=== PATIENT | female | born 1975 | race Caucasian/White ===

== ENCOUNTER 2018-11-25 13:32 | Outpatient (CLI) | payer OTHER ==
--- NOTE | 2018-11-25 16:59 | MRI Report ---
Reason: LOW BACK PAIN Procedure Date: 11/25/2018 Accession Number: [id number] / [id number] Procedure: MRI - Lumbar Spine W/O CPT Code: FULL RESULT: EXAM: MRI LUMBAR SPINE WITHOUT CONTRAST EXAM DATE: 11/25/2018 03:06 PM. CLINICAL HISTORY: LOW BACK PAIN. COMPARISON: None. TECHNIQUE: Multiplanar, multisequence T1-weighted and fluid-sensitive sequences of the lumbar spine from T12 to S1 without contrast. Other: None. FINDINGS: Spinal Canal: The conus terminates at L1. The conus medullaris and cauda equina are unremarkable. Alignment: There appears to be 10 degrees of dextroconvex scoliotic curvature centered about L2-L3. No definite spondylolisthesis. Bone Marrow: Five [id number] lumbar vertebral bodies are assumed. No acute fracture. There is T1/T2 hyperintense lesion seen within the T10, T12, L2, L3, and L4 vertebral bodies that may represent hemangiomas. No other marrow replacing lesion seen. Disk Levels/Facets: T12-L1: Minimal bilateral threaded facet disease. No spinal canal stenosis. No definite neural foraminal narrowing. L1-L2: Slight posterior disk bulge. Minimal bilateral arthritic facet disease. No spinal canal stenosis. No neural foraminal narrowing. L2-L3: Slight posterior disk bulge and minimal to mild bilateral arthritic facet disease. No spinal canal stenosis. No definite neural foraminal narrowing. L3-L4: Slight posterior disk bulge with superimposed tiny bilateral neural foraminal disk protrusions. Mild bilateral arthritic facet disease. No spinal canal stenosis. No significant neural foraminal narrowing. L4-L5: Slight posterior disk bulge with superimposed tiny bilateral neural foraminal disk protrusions. Mild bilateral arthritic facet disease with fluid seen within the facets bilaterally. No spinal canal stenosis. Mild bilateral neural foraminal narrowing. L5-S1: Slight posterior disk bulge with superimposed tiny to small left neural foraminal disk protrusion. Bilateral arthritic facet disease. No spinal canal stenosis. Mild left neural foraminal narrowing. Musculature: There is T2 hyperintense lesion arising from the right L4-L5 facet projecting into the right multifidus muscles measuring 3 x 5 x 3 mm (cc by TR by AP) likely representing synovial cyst. Other: The partially visualized retroperitoneum is unremarkable. IMPRESSION: 1. There appears to be 10 degrees of dextroconvex scoliotic curvature centered about L2-L3. 2. Minimal to mild multilevel degenerative changes with no high-grade spinal canal stenosis seen. 3. There appears to be mild neural foraminal narrowing involving bilateral L4-L5 neural foramina and left L5-S1 neural foramina. Comment: The following findings are so common in adults without low back pain that while we report their presence, they must be interpreted with caution and in the context of the clinical situation. (Reference Dukek et al, Spine 2001) Prevalence of findings in patients without low back pain: Disk degeneration (any evidence): 92% Disk desiccation/T2 signal loss: 83% Disk height loss: 56% Disk bulge: 64% Disk protrusion: 32% Annular tear/high intensity zone: 38% RADIA
== END 2018-11-25 13:33 | disposition home or self-care (01) ==
LOC: DI 13:32
PROVIDERS: ATTEND Family Medicine
DX: M51.36 Other intervertebral disc degeneration, lumbar region (principal); M48.061 Spinal stenosis, lumbar region without neurogenic claudication; M51.26 Other intervertebral disc displacement, lumbar region; M41.86 Other forms of scoliosis, lumbar region
CPT/HCPCS: 72148

== ENCOUNTER 2019-09-25 08:14 | Emergency (ER) | payer OTHER ==
[2019-09-25] MEDS ORDERED: CHERRY SYRUP 10 ML UDC PO ONE (08:35)
[2019-09-25] MEDS ORDERED: DEXAMETHASONE 10 MG/ML VIAL PO STA (08:35)
[2019-09-25] MEDS ORDERED: KETOROLAC 60 MG/2 ML VIAL IM STA (08:35)
--- NOTE | 2019-09-25 08:38 | ED Physician Documentation ---
PD HPI BACK PAIN - Stated complaint Stated Complaint: BACK PX - Chief complaint Chief Complaint: Back Pain - History obtained from History obtained from: Patient, Family - History of Present Illness Timing - onset: Last night Timing - duration: Hours Timing - details: Gradual onset, Still present Location: Lower Quality: Pain, Spasm, Sharp, Similar to prior episodes Associated symptoms: No: Fever, Weakness, Numbness, Incontinent of urine, Unable to urinate, Hematuria, Incontinent of stool Improves with: Position. No: Rest Worsened by: Movement Contributing factors: Lifting, Twisting, Other (painting in the house) Similar symptoms before: Diagnosis (lumbar disc disease) Recently seen: Not recently seen - Additional information Additional information: 43-year-old female with lumbar disc disease and chronic back pain who has been in physical therapy for the past 2 years has developed acute lower back pain and spasm. She denies any radiation to her feet or toes she does have some radiation to the front of her thighs. She denies any numbness in the perineum she denies any difficulty with the bowel or bladder. She has had similar symptoms previously she has never had them this bad. She has pain to any kind of movement. She has been painting in her house and she attributes this increased back pain to the excessive use. She also states that she went swimming yesterday and did flip turns which she has not been doing previously. 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 : None HEENT: None Musculoskeletal: Chronic back pain Derm: None Other Past Medical History: bulging disc in L-spine - Past Surgical History Past Surgical History: No - Present Medications Home Medications: Ambulatory Orders Medication Instructions Recorded Confirmed Cyclobenzaprine [Flexeril] 10 mg PO TID PRN #20 tablet 09/25/19 Hydrocodone/Acetaminophen 1 - 2 each PO Q6H PRN #14 tablet 09/25/19 [Hydrocodon-Acetaminophen 5-325] - Allergies Allergies/Adverse Reactions: Allergies Allergy/AdvReac Type Severity Reaction Status Date / Time No Known Drug Allergies Allergy Verified 09/25/19 08:27 - Social History Does the pt smoke?: No Smoking Status: Never smoker Does the pt drink ETOH?: No Does the pt have substance abuse?: No - Immunizations Immunizations are current?: Yes - POLST Patient has POLST: No PD ED PE NORMAL - Vitals Vital signs reviewed: Yes (normal ) - General General: Alert and oriented X 3, No acute distress, Well developed/nourished - HEENT HEENT: Atraumatic, PERRL, EOMI - Neck Neck: Supple, no meningeal sign - Respiratory Respiratory: No respiratory distress - Back Back: No CVA TTP, No spinal TTP, Other (There is mild tenderness to the paraspinous muscles of the lower lumbar spine extending into the sciatic notch bilaterally. 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 We will provide her with some pain medication muscle relaxant and ice and stretch. Departure - Departure Disposition: 01 Home, Self Care Clinical Impression: Lumbar strain Qualifiers: Encounter type: initial encounter Qualified Code(s): S39.012A - Strain of musc le, fascia and tendon of lower back, initial encounter Condition: Stable Instructions: ED Sciatica Follow-Up: SHONNA CHANDLER MD [Primary Care Provider] - Prescriptions: Cyclobenzaprine [Flexeril] 10 mg PO TID PRN #20 tablet PRN Reason: Spasms Hydrocodone/Acetaminophen [Hydrocodon-Acetaminophen 5-325] 1 - 2 each PO Q6H PRN #14 tablet PRN Reason: pain
[2019-09-25 08:46] VITALS: BP 114/79
== END 2019-09-25 09:13 | disposition home or self-care (01) ==
LOC: ED 08:14
DX: S39.012A Strain of muscle, fascia and tendon of lower back, initial encounter (principal); X50.1XXA Overexertion from prolonged static or awkward postures, initial encounter; Y93.E9 Activity, other interior property and clothing maintenance; Y92.009 Unspecified place in unspecified non-institutional (private) residence as the place of occurrence of the external cause
CPT/HCPCS: 96372; 99283; 99284; A9270

== ENCOUNTER 2021-09-17 07:25 | Outpatient (CLI) | payer OTHER ==
--- NOTE | 2021-09-17 10:25 | MRI Report ---
PROCEDURE: Shoulder LT W/O INDICATIONS: LEFT SHOULDER PAIN TECHNIQUE: Noncontrast oblique coronal T2 fast spin echo with fat saturation, oblique sagittal T1 spin echo and T2 fast spin echo with fat saturation, axial T1 spin echo and T2 fast spin echo with fat saturation t hrough the shoulder. COMPARISON: None. FINDINGS: Image quality: Excellent. Rotator cuff: Tendinosis and low-grade articular and bursal surface partial-thickness tear involving distal supraspinatus at its insertion on humeral head is seen extending to musculotendinous junction. Distal infraspinatus and subscapularis tendinosis is also noted. No full-thickness rotator cuff tend on rupture.. No rotator cuff muscle atrophy on sagittal images. Bones and bursae: No bone marrow contusions or fractures. [id number] acromioclavicular joint o steoarthritic changes are seen with downward osteophyte formation depressing on musculotendinous junc tion of supraspinatus. Nonspecific intraosseous cyst formation in lateral humeral head is seen near r otator cuff tendon insertion. Trace amount of joint fluid is seen, no significant subacromial subdelt oid bursal fluid. Capsule and soft tissues: The labrum and glenohumeral ligaments appear intact. The long head of the biceps tendinosis is seen. The rotator interval appears normal, without fibrosis. The coracohumeral ligament is normal in thickness. IMPRESSION: 1. Tendinosis and low-grade articular and bursal surface partial-thickness tear involving distal supr aspinatus extending to musculotendinous junction. Distal infraspinatus and subscapularis tendinosis. No full-thickness rotator cuff tendon rupture. No muscle atrophy. 2. Mild to moderate acromioclavicular joint osteoarthritis. No fracture or dislocation. 3. No gross focal labral tear. 4. Proximal intra-articular portion of long head of biceps tendinosis. Reviewed by: Tyrel Avery MD on 09/17/2021 10:24 AM PST Approved by: Tyrel Avery MD on 09/17/2021 10:24 AM PST Station ID: [id number]
== END 2021-09-17 07:26 | disposition home or self-care (01) ==
LOC: DI 07:25
PROVIDERS: ATTEND Student in an Organized Health Care Education/Training Program
DX: M75.112 Incomplete rotator cuff tear or rupture of left shoulder, not specified as traumatic (principal); M19.012 Primary osteoarthritis, left shoulder; M75.92 Shoulder lesion, unspecified, left shoulder